=== PATIENT | female | born 1980 | race Caucasian/White ===

== ENCOUNTER 2018-10-28 12:24 | Emergency (ER) | payer OTHER ==
[~2018-10-28] VITALS: Ht 152.4 cm; Wt 76.7 kg
[2018-10-28 12:33] VITALS: Ht 152.4 cm; Wt 76.7 kg
[2018-10-28 15:03] VITALS: BP 112/71
== END 2018-10-28 15:03 | disposition home or self-care (01) ==
LOC: ED 12:24
DX: M54.5 Low back pain (principal)